=== PATIENT | male | born 1995 | race Caucasian/White ===

== ENCOUNTER 2022-07-01 14:45 | Observation (INO) ==
[2022-07-01 16:16] LABS: Basophils # (auto) 0.06 K/uL (0-0.2); Basophils % (auto) 0.6 %; Eosinophils # (auto) 0.11 K/uL (0-0.50); Eosinophils % (auto) 1.1 %; Hematocrit (blood only) 47.2 % (40.1-51.0); Hemoglobin 17.1 g/dl (14.0-18.0); Immature Granulocytes # (auto) 0.02 K/uL (0.00-0.02); Immature Granulocytes % (auto) 0.2 %; Lymphocytes # (auto) 3.65 K/uL (1.2-3.4); Lymphocytes % (auto) 37.9 %; Mean Corpuscular Hemoglobin 31.5 pg (25.0-34.0); Mean Corpuscular Hgb Conc 36.2 g/dL (32.0-36.0); Mean Corpuscular Volume 87.1 fL (80.0-100.0); Mean Platelet Volume 10.6 fL (9.4-12.4); Monocytes # (auto) 0.88 K/uL (0.24-0.82); Monocytes % (auto) 9.1 %; Neutrophils # (auto) 4.91 K/uL (1.4-6.5); Neutrophils % (auto) 51.1 %; Platelet Count 287 K/uL (130-400); RDW Coefficient of Variation 12.3 % (11.5-14.5); RDW Standard Deviation 38.9 fL (36.4-46.3); Red Blood Count 5.42 M/uL (4.63-6.08); White Blood Count 9.63 K/ul (4.8-10.8)
[2022-07-01] MEDS ORDERED: SODIUM CHLORIDE 0.9% 1000ML 2,000 ML IV ONE (16:38)
[2022-07-01 16:41] LABS: Albumin Globulin Ratio 1.7 (0.9-2); Albumin Level 4.8 gm/dl (3.4-5.0); BUN Creatinine Ratio 12.8 (10-20); Bilirubin,Total 0.9 mg/dl (0.2-1.0); Calcium 9.4 mg/dl (8.5-10.1); Creatinine Clr Calc Pharmacy 129.1 ml/min; Est GFR (African American) 97.8 ml/min; Est GFR (Non-African American) 84.3 ml/min; Globulin 2.8 gm/dl (2.5-4.0); Potassium 3.3 mmol/L (3.5-5.1); Total Protein 7.6 gm/dl (6.0-8.3)
--- NOTE | 2022-07-01 16:44 | Emergency Department Note ---
History of Present Illness General Chief complaint: Tachycardia Stated complaint: TACHYCARDIA Time Seen by Provider: 07/01/22 16:13 History of Present Illness This is a 26-year-old male with no significant past medical history accompanied by his and mother who presents via EMS for a fast heart rate that he noticed today while at work. This was accompanied by some mild dizziness. Patient states he was sitting in a monthly meeting when he began thinking about several considerations to interject into the meeting which often causes his heart rate to slightly increase but then he noticed his heart rate continuing to increase, looked at his watch and it showed elevated heart rate in the 140s. He decided to step out to get some fresh air but his heart rate would not come down. He decided to lay down and a coworker who used to be a nurse had him blow through a straw but this was not very therapeutic. He called EMS. They also had him perform some vagal maneuvers and he stated that this slightly improved his symptoms for a brief period of time but then his heart rate continued to increase again. Since being in the emergency department, he can feel his heart going up and down but has never dropped below 100. He has never experienced any chest pain, does not have any shortness of breath though at one point during these events at his office he felt like it was hard to catch a full breath. S tates that he felt a little nauseous when his heart rate was very high but has not had any vomiting or diaphoresis. The highest his heart rate showed on his smart watch was 180. He only other symptoms he can describe recently is having a bit of a sore throat several days ago and he can feel a "bump" in the back of his throat near his Elan's apple. This was accompanied by a mild amount of congestion. He denies any fevers or cough. Has not been exposed anyone who he knows is sick with anything. Admits to not drinking very much water today as he had a busy day at work. Does not routinely drink caffeine. No known problems with his thyroid. Denies any cardiac history. Denies any alcohol or substance use. No personal or family history of arrhythmias like hypertrophic cardiomyopathy, Hvbdt-[id number]-Qlrge, SVT, or Brugada syndrome. Denies any history of anxiety, if anything prides himself on being a calm person No leg pain or leg swelling, denies any history of PE or DVT. Home Medications Medication Instructions Recorded Confirmed Type No Known Home Medications 05/01/20 07/01/22 History Allergies Allergy/AdvReac Type Severity Reaction Status Date / Time No Known Allergies Allergy Unverified 05/01/20 23:37 Past Med/Surg History Medical History No significant past medical history Surgical History No pertinent past surgical history Social History Smoking Status: Never smoker Preferred Language: Mongolian Communication Ability: Effective Studio Owner Required: No Beliefs That Will Affect Care: None Current Living Situation: Spouse Feels Safe at Home: Yes Assistive Devices: None Review of Systems See HPI for pertinent positives & negatives. and A total of 10 systems reviewed and were otherwise negative Physical Exam Vital Signs Vital Signs - 24 hr 07/01/22 14:56 07/01/22 15:07 07/01/22 15:30 Temperature 98.8 F Temperature Source Oral Pulse Rate 127 H 120 H 125 H Pulse Rate from SpO2 Sensor Respiratory Rate 17 20 21 Respiratory Effort / Characteristics Non-Labored Spontaneous Respiratory Depth Normal Blood Pressure 189/95 H Blood Pressure Mean 126 Pulse Oximetry 98 98 97 Oxygen Delivery Method Room Air Sepsis Recent Fever Within 48 Hours No Sepsis New/Unexplained Change in Mental Status N/A Sepsis Action Taken by Nursing No Action Required 07/01/22 15:31 07/01/22 15:31 07/01/22 16:00 Temperature Temperature Source Pulse Rate 146 H Pulse Rate from SpO2 Sensor Respiratory Rate 17 Respiratory Effort / Characteristics Respiratory Depth Blood Pressure 164/94 H 146/91 H Blood Pressure Mean 117 109 Pulse Oximetry 97 Oxygen Delivery Method Sepsis Recent Fever Within 48 Hours Sepsis New/Unexplained Change in Mental Status Sepsis Action Taken by Nursing 07/01/22 16:00 07/01/22 16:30 07/01/22 16:30 Temperature Temperature Source Pulse Rate 136 H 119 H Pulse Rate from SpO2 Sensor Respiratory Rate 19 20 Respiratory Effort / Characteristics Respiratory Depth Blood Pressure 169/119 H Blood Pressure Mean 135 Pulse Oximetry 98 Oxygen Delivery Method Sepsis Recent Fever Within 48 Hours Sepsis New/Unexplained Change in Mental Status Sepsis Action Taken by Nursing 07/01/22 17:00 07/01/22 17:01 07/01/22 17:01 Temperature Temperature Source Pulse Rate 106 H 104 H Pulse Rate from SpO2 Sensor Respiratory Rate 19 15 Respiratory Effort / Characteristics Respiratory Depth Blood Pressure 134/82 Blood Pressure Mean 99 Pulse Oximetry Oxygen Delivery Method Sepsis Recent Fever Within 48 Hours Sepsis New/Unexplained Change in Mental Status Sepsis Action Taken by Nursing 07/01/22 17:30 07/01/22 17:30 07/01/22 18:00 Temperature Temperature Source Pulse Rate 103 H Pulse Rate from SpO2 Sensor Respiratory Rate 19 Respiratory Effort / Characteristics Respiratory Depth Blood Pressure 130/83 139/80 Blood Pressure Mean 98 99 Pulse Oximetry Oxygen Delivery Method Sepsis Recent Fever Within 48 Hours Sepsis New/Unexplained Change in Mental Status Sepsis Action Taken by Nursing 07/01/22 18:00 07/01/22 18:30 07/01/22 18:30 Temperature Temperature Source Pulse Rate 110 H 93 H Pulse Rate from SpO2 Sensor 106 H 96 H Respiratory Rate 14 22 Respiratory Effort / Characteristics Respiratory Depth Blood Pressure 144/83 H Blood Pressure Mean 103 Pulse Oximetry 96 92 Oxygen Delivery Method Sepsis Recent Fever Within 48 Hours Sepsis New/Unexplained Change in Mental Status Sepsis Action Taken by Nursing 07/01/22 19:24 07/01/22 19:24 07/01/22 19:00 Temperature Temperature Source Pulse Rate 96 H Pulse Rate from SpO2 Sensor Respiratory Rate Respiratory Effort / Characteristics Respiratory Depth Blood Pressure 141/86 H Blood Pressure Mean 104 Pulse Oximetry 95 Oxygen Delivery Method Room Air Room Air Sepsis Recent Fever Within 48 Hours Sepsis New/Unexplained Change in Mental Status Sepsis Action Taken by Nursing 07/01/22 19:00 07/01/22 19:30 07/01/22 19:30 Temperature Temperature Source Pulse Rate 105 H 87 Pulse Rate from SpO2 Sensor 100 H Respiratory Rate 19 16 Respiratory Effort / Characteristics Respiratory Depth Blood Pressure 126/87 Blood Pressure Mean 100 Pulse Oximetry 97 Oxygen Delivery Method Sepsis Recent Fever Within 48 Hours Sepsis New/Unexplained Change in Mental Status Sepsis Action Taken by Nursing 07/01/22 20:00 07/01/22 20:00 07/01/22 20:30 Temperature Temperature Source Pulse Rate 95 H 96 H Pulse Rate from SpO2 Sensor 93 H 102 H Respiratory Rate 20 22 Respiratory Effort / Characteristics Respiratory Depth Blood Pressure 132/74 Blood Pressure Mean 93 Pulse Oximetry 95 96 Oxygen Delivery Method Sepsis Recent Fever Within 48 Hours Sepsis New/Unexplained Change in Mental Status Sepsis Action Taken by Nursing 07/01/22 20:30 07/01/22 20:44 07/01/22 20:44 Temperature Temperature Source Pulse Rate 110 H Pulse Rate from SpO2 Sensor 112 H Respiratory Rate 17 Respiratory Effort / Characteristics Respiratory Depth Blood Pressure 154/101 H 174/101 H Blood Pressure Mean 118 125 Pulse Oximetry 97 Oxygen Delivery Method Sepsis Recent Fever Within 48 Hours Sepsis New/Unexplained Change in Mental Status Sepsis Action Taken by Nursing 07/01/22 21:00 07/01/22 21:00 07/01/22 21:30 Temperature Temperature Source Pulse Rate 114 H 103 H Pulse Rate from SpO2 Sensor 110 H 103 H Respiratory Rate 15 17 Respiratory Effort / Characteristics Respiratory Depth Blood Pressure 166/96 H Blood Pressure Mean 119 Pulse Oximetry 99 99 Oxygen Delivery Method Sepsis Recent Fever Within 48 Hours Sepsis New/Unexplained Change in Mental Status Sepsis Action Taken by Nursing 07/01/22 21:30 07/01/22 22:00 07/01/22 22:00 Temperature Temperature Source Pulse Rate 106 H Pulse Rate from SpO2 Sensor 106 H Respiratory Rate 20 Respiratory Effort / Characteristics Respiratory Depth Blood Pressure 155/92 H 180/107 H Blood Pressure Mean 113 131 Pulse Oximetry 99 Oxygen Delivery Method Sepsis Recent Fever Within 48 Hours Sepsis New/Unexplained Change in Mental Status Sepsis Action Taken by Nursing CONSTITUTIONAL: Well developed, well nourished, in no acute distress. HEAD: Normocephalic, atraumatic. EYES: conjunctivae normal, extraocular muscles intact. ENMT: External ears normal. Nose with normal external appearance, no congestion. Uvula is slightly swollen. Tonsils 2+ bilaterally, no exudates. NECK: Full active range of motion. Possible prominence in the left thyroid region though equivocal due to body habitus, nontender LYMPHATIC: No cervical adenopathy RESPIRATORY: Breathing unlabored and symmetric. Lungs clear to auscultation bilaterally. No wheeze, rales, or rhonchi. CARDIOVASCULAR: Tachycardic rate and regular rhythm. No murmurs, rubs, or gallops. Radial pulses 2+ bilaterally ABDOMEN: Normal bowel sounds. Soft, nontender, no peritonitis. No masses. MUSCULOSKELETAL: Moves all extremities at all joints without pain or difficulty. No cyanosis or edema. No tenderness in bilateral legs. Back with full range of motion. SKIN: [place], warm, dry. No diaphoresis NEUROLOGIC: Awake, alert, oriented. Gaze is conjugate. Face symmetric, speech normal. Moves head and all four extremities spontaneously. Sensation and strength grossly intact. PSYCHIATRIC: Appropriate. Normal affect Course Administered Medications Discontinued Medications Enoxaparin Sodium (Enoxaparin Inj 40 Mg/0.4 Ml Syr) 40 mg SQ QAM ALFONSO Stop: 08/01/22 08:59 Last Admin: 07/02/22 08:21 Dose: 40 mg Documented By: OL Sodium Chloride (Nss 1000ml) 2,000 mls @ 999 mls/hr IV .Q2H1M ONE Stop: 07/01/22 18:38 Last Infusion: 07/01/22 22:01 Dose: 0 mls/hr Documented By: Admin: 07/01/22 16:45 Dose: 999 mls/hr Documented By: TRAVIS Lactated Ringer's (Lr) 1,000 mls @ 50 mls/hr IV .Q20H ONE Stop: 07/02/22 17:20 Last Admin: 07/01/22 22:18 Dose: 50 mls/hr Documented By: VALERIE Magnesium Sulfate/Dextrose (Magnesium Sulfate / D5w) 1 gm in 100 mls @ 50 mls/hr IV 2330 ONE Stop: 07/02/22 01:29 Last Infusion: 07/02/22 01:34 Dose: 0 mls/hr Documented By: Admin: 07/01/22 23:34 Dose: 50 mls/hr Documented By: VALERIE Metoprolol Tartrate (Metoprolol Tartrate 25 Mg Tab) 25 mg PO NOW STA Stop: 07/01/22 22:05 Last Admin: 07/01/22 22:24 Dose: 25 mg Documented By: VALERIE Metoprolol Tartrate (Metoprolol Tartrate 25 Mg Tab) 25 mg PO BID ALFONSO Stop: 08/01/22 08:59 Last Admin: 07/02/22 08:21 Dose: 25 mg Documented By: OL Potassium Chloride (Potassium Chloride Crtab 20 Meq Tabcr) 40 meq PO NOW STA Stop: 07/01/22 21:20 Last Admin: 07/01/22 22:18 Dose: 40 meq Documented By: VALERIE Potassium Chloride (Potassium Chloride Crtab 20 Meq Tabcr) 40 meq PO ONE ONE Stop: 07/01/22 23:31 Last Admin: 07/01/22 23:34 Dose: Not Given Documented By: VALERIE Medical Decision Making Differential Diagnosis Dehydration, arrhythmia, electrolyte imbalance, thyroid dysfunction, substance use, dehydration, cardiac ischemia, pulmonary embolism, dissection, infectious process, pain response, catecholamine surge, strep pharyngitis, among other pathology Medical Records Attestation: I reviewed the patient's medical records. Laboratory Data Result diagrams: 07/02/22 06:08 07/02/22 06:08 Lab Results 07/01/22 07/01/22 07/01/22 Range/Units 14:56 14:56 14:56 WBC 9.63 (4.8-10.8) K/ul RBC 5.42 (4.63-6.08) M/uL Hgb 17.1 (14.0-18.0) g/dl Hct 47.2 (40.1-51.0) % MCV 87.1 (80.0-100.0) fL MCH 31.5 (25.0-34.0) pg MCHC 36.2 H (32.0-36.0) g/dL RDW Std Deviation 38.9 (36.4-46.3) fL RDW Coeff of Kellee 12.3 (11.5-14.5) % Plt Count 287 (130-400) K/uL MPV 10.6 (9.4-12.4) fL Immature Gran % (Auto) 0.2 % Neut % (Auto) 51.1 % Lymph % (Auto) 37.9 % [place] % (Auto) 9.1 % Eos % (Auto) 1.1 % Baso % (Auto) 0.6 % Neut # (Auto) 4.91 (1.4-6.5) K/uL Lymph # (Auto) 3.65 H (1.2-3.4) K/uL [place] # (Auto) 0.88 H (0.24-0.82) K/uL Eos # (Auto) 0.11 (0-0.50) K/uL Baso # (Auto) 0.06 (0-0.2) K/uL Immature Gran # (Auto) 0.02 (0.00-0.02) K/uL D-Dimer (0-500) ug/L FEU Sodium 138 (136-145) mmol/L Potassium 3.3 L (3.5-5.1) mmol/L Chloride 103 (98-107) mmol/L Carbon Dioxide 22 (21-32) mmol/L Anion Gap 13 H (3-11) BUN 15 (6-23) mg/dl Creatinine 1.17 (0.6-1.4) mg/dl Est Cr Clr Drug Dosing 129.1 ml/min Est GFR ( Amer) 97.8 ml/min Est GFR (Non-Af Amer) 84.3 ml/min BUN/Creatinine Ratio 12.8 (10-20) Glucose 128 H (70-99(Fasting)) mg/dl Estimat Average Glucose mg/dl Hemoglobin A1c (4.5-5.6) % Calcium 9.4 (8.5-10.1) mg/dl Magnesium (1.7-2.4) mg/dl Total Bilirubin 0.9 (0.2-1.0) mg/dl AST 44 H (13-39) U/L ALT 102 H (7-52) U/L Alkaline Phosphatase 85 (34-104) U/L Troponin I High Sens 4.5 (0-20) pg/ml Total Protein 7.6 (6.0-8.3) gm/dl Albumin 4.8 (3.4-5.0) gm/dl Globulin 2.8 (2.5-4.0) gm/dl Albumin/Globulin Ratio 1.7 (0.9-2) Lipase (11-82) U/L TSH (0.300-4.500) uIu/ml Urine Color Urine Appearance (Clear) Urine pH (4.5-7.5) Ur Specific [place] (1.000-1.030) Urine Protein (Negative) Urine Glucose (UA) (Negative) Urine Ketones (Negative) Urine Blood (Negative) Urine Nitrite (Negative) Urine Bilirubin (Negative) Urine Urobilinogen (Negative) Ur Leukocyte Esterase (Negative) Urine WBC (Auto) (0-5) /hpf Urine RBC (Auto) (0-4) /hpf U Hyaline Cast (Auto) (0-5) /lpf U Epithel Cells (Auto) (0-5) /lpf Urine Bacteria (Auto) (Negative) SARS-CoV-2 (PCR) (Negative) Influenza Type A (PCR) (Neg) Influenza Type B (PCR) (Neg) RSV (RT-PCR) (Neg) Group A Strep (PCR) (NotDetected) 12/12/1607/01/22 07/01/22 Range/Units 14:56 14:56 14:56 WBC (4.8-10.8) K/ul RBC (4.63-6.08) M/uL Hgb (14.0-18.0) g/dl Hct (40.1-51.0) % MCV (80.0-100.0) fL MCH (25.0-34.0) pg MCHC (32.0-36.0) g/dL RDW Std Deviation (36.4-46.3) fL RDW Coeff of Kellee (11.5-14.5) % Plt Count (130-400) K/uL MPV (9.4-12.4) fL Immature Gran % (Auto) % Neut % (Auto) % Lymph % (Auto) % [place] % (Auto) % Eos % (Auto) % Baso % (Auto) % Neut # (Auto) (1.4-6.5) K/uL Lymph # (Auto) (1.2-3.4) K/uL [place] # (Auto) (0.24-0.82) K/uL Eos # (Auto) (0-0.50) K/uL Baso # (Auto) (0-0.2) K/uL Immature Gran # (Auto) (0.00-0.02) K/uL D-Dimer < 190 (0-500) ug/L FEU Sodium (136-145) mmol/L Potassium (3.5-5.1) mmol/L Chloride (98-107) mmol/L Carbon Dioxide (21-32) mmol/L Anion Gap (3-11) BUN (6-23) mg/dl Creatinine (0.6-1.4) mg/dl Est Cr Clr Drug Dosing ml/min Est GFR ( Amer) ml/min Est GFR (Non-Af Amer) ml/min BUN/Creatinine Ratio (10-20) Glucose (70-99(Fasting)) mg/dl Estimat Average Glucose 103 mg/dl Hemoglobin A1c 5.2 (4.5-5.6) % Calcium (8.5-10.1) mg/dl Magnesium (1.7-2.4) mg/dl Total Bilirubin (0.2-1.0) mg/dl AST (13-39) U/L ALT (7-52) U/L Alkaline Phosphatase (34-104) U/L Troponin I High Sens (0-20) pg/ml Total Protein (6.0-8.3) gm/dl Albumin (3.4-5.0) gm/dl Globulin (2.5-4.0) gm/dl Albumin/Globulin Ratio (0.9-2) Lipase (11-82) U/L TSH 3.049 (0.300-4.500) uIu/ml Urine Color Urine Appearance (Clear) Urine pH (4.5-7.5) Ur Specific [place] (1.000-1.030) Urine Protein (Negative) Urine Glucose (UA) (Negative) Urine Ketones (Negative) Urine Blood (Negative) Urine Nitrite (Negative) Urine Bilirubin (Negative) Urine Urobilinogen (Negative) Ur Leukocyte Esterase (Negative) Urine WBC (Auto) (0-5) /hpf Urine RBC (Auto) (0-4) /hpf U Hyaline Cast (Auto) (0-5) /lpf U Epithel Cells (Auto) (0-5) /lpf Urine Bacteria (Auto) (Negative) SARS-CoV-2 (PCR) (Negative) Influenza Type A (PCR) (Neg) Influenza Type B (PCR) (Neg) RSV (RT-PCR) (Neg) Group A Strep (PCR) (NotDetected) 07/01/22 07/01/22 07/01/22 Range/Units 14:56 16:51 16:51 WBC (4.8-10.8) K/ul RBC (4.63-6.08) M/uL Hgb (14.0-18.0) g/dl Hct (40.1-51.0) % MCV (80.0-100.0) fL MCH (25.0-34.0) pg MCHC (32.0-36.0) g/dL RDW Std Deviation (36.4-46.3) fL RDW Coeff of Kellee (11.5-14.5) % Plt Count (130-400) K/uL MPV (9.4-12.4) fL Immature Gran % (Auto) % Neut % (Auto) % Lymph % (Auto) % [place] % (Auto) % Eos % (Auto) % Baso % (Auto) % Neut # (Auto) (1.4-6.5) K/uL Lymph # (Auto) (1.2-3.4) K/uL [place] # (Auto) (0.24-0.82) K/uL Eos # (Auto) (0-0.50) K/uL Baso # (Auto) (0-0.2) K/uL Immature Gran # (Auto) (0.00-0.02) K/uL D-Dimer (0-500) ug/L FEU Sodium (136-145) mmol/L Potassium (3.5-5.1) mmol/L Chloride (98-107) mmol/L Carbon Dioxide (21-32) mmol/L Anion Gap (3-11) BUN (6-23) mg/dl Creatinine (0.6-1.4) mg/dl Est Cr Clr Drug Dosing ml/min Est GFR ( Amer) ml/min Est GFR (Non-Af Amer) ml/min BUN/Creatinine Ratio (10-20) Glucose (70-99(Fasting)) mg/dl Estimat Average Glucose mg/dl Hemoglobin A1c (4.5-5.6) % Calcium (8.5-10.1) mg/dl Magnesium 1.9 (1.7-2.4) mg/dl Total Bilirubin (0.2-1.0) mg/dl AST (13-39) U/L ALT (7-52) U/L Alkaline Phosphatase (34-104) U/L Troponin I High Sens (0-20) pg/ml Total Protein (6.0-8.3) gm/dl Albumin (3.4-5.0) gm/dl Globulin (2.5-4.0) gm/dl Albumin/Globulin Ratio (0.9-2) Lipase (11-82) U/L TSH (0.300-4.500) uIu/ml Urine Color Urine Appearance (Clear) Urine pH (4.5-7.5) Ur Specific [place] (1.000-1.030) Urine Protein (Negative) Urine Glucose (UA) (Negative) Urine Ketones (Negative) Urine Blood (Negative) Urine Nitrite (Negative) Urine Bilirubin (Negative) Urine Urobilinogen (Negative) Ur Leukocyte Esterase (Negative) Urine WBC (Auto) (0-5) /hpf Urine RBC (Auto) (0-4) /hpf U Hyaline Cast (Auto) (0-5) /lpf U Epithel Cells (Auto) (0-5) /lpf Urine Bacteria (Auto) (Negative) SARS-CoV-2 (PCR) NEGATIVE (Negative) Influenza Type A (PCR) Negative (Neg) Influenza Type B (PCR) Negative (Neg) RSV (RT-PCR) Negative (Neg) Group A Strep (PCR) NOT DETECTED (NotDetected) 07/01/22 07/01/22 07/01/22 Range/Units 17:11 19:21 19:21 WBC (4.8-10.8) K/ul RBC (4.63-6.08) M/uL Hgb (14.0-18.0) g/dl Hct (40.1-51.0) % MCV (80.0-100.0) fL MCH (25.0-34.0) pg MCHC (32.0-36.0) g/dL RDW Std Deviation (36.4-46.3) fL RDW Coeff of Kellee (11.5-14.5) % Plt Count (130-400) K/uL MPV (9.4-12.4) fL Immature Gran % (Auto) % Neut % (Auto) % Lymph % (Auto) % [place] % (Auto) % Eos % (Auto) % Baso % (Auto) % Neut # (Auto) (1.4-6.5) K/uL Lymph # (Auto) (1.2-3.4) K/uL [place] # (Auto) (0.24-0.82) K/uL Eos # (Auto) (0-0.50) K/uL Baso # (Auto) (0-0.2) K/uL Immature Gran # (Auto) (0.00-0.02) K/uL D-Dimer (0-500) ug/L FEU Sodium (136-145) mmol/L Potassium (3.5-5.1) mmol/L Chloride (98-107) mmol/L Carbon Dioxide (21-32) mmol/L Anion Gap (3-11) BUN (6-23) mg/dl Creatinine (0.6-1.4) mg/dl Est Cr Clr Drug Dosing ml/min Est GFR ( Amer) ml/min Est GFR (Non-Af Amer) ml/min BUN/Creatinine Ratio (10-20) Glucose (70-99(Fasting)) mg/dl Estimat Average Glucose mg/dl Hemoglobin A1c (4.5-5.6) % Calcium (8.5-10.1) mg/dl Magnesium (1.7-2.4) mg/dl Total Bilirubin (0.2-1.0) mg/dl AST (13-39) U/L ALT (7-52) U/L Alkaline Phosphatase (34-104) U/L Troponin I High Sens 4.6 (0-20) pg/ml Total Protein (6.0-8.3) gm/dl Albumin (3.4-5.0) gm/dl Globulin (2.5-4.0) gm/dl Albumin/Globulin Ratio (0.9-2) Lipase 6 L (11-82) U/L TSH (0.300-4.500) uIu/ml Urine Color Yellow Urine Appearance Clear (Clear) Urine pH 7.5 (4.5-7.5) Ur Specific [place] 1.021 (1.000-1.030) Urine Protein Negative (Negative) Urine Glucose (UA) Negative (Negative) Urine Ketones Negative (Negative) Urine Blood 1+ H (Negative) Urine Nitrite Negative (Negative) Urine Bilirubin Negative (Negative) Urine Urobilinogen Negative (Negative) Ur Leukocyte Esterase Negative (Negative) Urine WBC (Auto) 1-5 (0-5) /hpf Urine RBC (Auto) 10-30 H (0-4) /hpf U Hyaline Cast (Auto) 5-10 H (0-5) /lpf U Epithel Cells (Auto) 5-10 H (0-5) /lpf Urine Bacteria (Auto) Negative (Negative) SARS-CoV-2 (PCR) (Negative) Influenza Type A (PCR) (Neg) Influenza Type B (PCR) (Neg) RSV (RT-PCR) (Neg) Group A Strep (PCR) (NotDetected) Imaging Data Attestation: I personally reviewed and interpreted this imaging study as follows: (I agree with the radiologist's interpretation) Radiologist's Impression: Chest X-Ray 07/01/22 16:38 XR chest 1V portable HISTORY: 26 years-old Male tachycardia, dizziness acute tachycardia with shortness of breath and chest pain COMPARISON: None TECHNIQUE: Portable AP view of the chest FINDINGS: Cardiomediastinal and hilar silhouettes are within normal limits. No pneumothorax, pleural effusion, airspace consolidation or overt pulmonary edema. Bones of the chest appear grossly intact. IMPRESSION: No acute process. ACT 112: Negative or not required by law. The above report was generated using voice recognition software. It may contain grammatical, syntax or spelling errors. Electronically signed by: Sigifredo Culver M.D. 07/01/2022 5:12 PM ECG Data Attestation: I personally reviewed and interpreted this ECG as follows: (Sinus tachycardia with a rate of 122. Intervals within normal limits. Normal axis. Nonspecific T wave abnormality in lead III. No acute ST elevation) MDM Narrative 26-year-old male presents with tachycardia that he felt and noticed on his watch that occurred while sitting in a meeting today at work. Accompanied by a mild amount of dizziness and feeling like it was difficult to catch a full breath though denies that now, denies any chest pain during these events today. Did not have much relief with vagal maneuvers. An order was placed for continuous cardiac monitoring. When I evaluated the p atient he was in sinus tachycardic in the 105-120 range. He is hypertensive. ECG shows sinus tachycardia. Patient also endorses a little bit of a sore throat and some congestion several days ago. His uvula is slightly swollen, possible node or prominence in the thyroid region but this is limited by body habitus. Patient has had mono, doubt this. 2 L IV fluids were initially administered. Patient remained hypertensive though this did improve somewhat with fluids and time. He had 2 negative troponins. D-dimer is negative. Potassium slightly low at 3.3. Anion gap slightly elevated at 13. Glucose slightly elevated 128. AST and ALT are mildly elevated, he has had slightly elevated ALT in the past. TSH is normal. Urinalysis shows blood, unclear if this etiology. Negative for COVID, strep, influenza, RSV. Chest x-ray is negative. Patient's heart rate trended down and did get below 100 at one point, though he spontaneously climbed back into the 140's while resting and remained in the 120- 130 range with multiple PACs for quite some time, and when I reevaluated him he stated he could feel his heart racing. His blood pressure was 154/101. Unable to discharge patient in this state. Case was discussed multiple times with ED attending Dr. Burton throughout patient's course. Case was discussed with Dr. Ybarra (hospitalist, [facility]) who agrees to admit the patient for further evaluation and management Impression & Plan Sinus tachycardia, Elevated blood pressure reading Discharge Plan Visit Data Chief Complaint: Tachycardia Stated Complaint: TACHYCARDIA ED Provider: Semaj Burton ED Midlevel Provider: Elan Ken Discharge Problem: Sinus tachycardia, Elevated blood pressure reading Patient Disposition: Admitted As Inpatient Condition: Fair Discharge Instructions Interventions: ED Discharge Assessment Last Done: 07/02/22 00:51
--- NOTE | 2022-07-01 17:13 | XRay Report ---
XR chest 1V portable HISTORY: 26 years-old Male tachycardia, dizziness acute tachycardia with shortness of breath and liliya st pain COMPARISON: None TECHNIQUE: Portable AP view of the chest FINDINGS: Cardiomediastinal and hilar silhouettes are within normal limits. No pneumothorax, pleural effusion, airspace consolidation or overt pulmonary edema. Bones of the chest appear grossly intact. IMPRESSION: No acute process. ACT 112: Negative or not required by law. The above report was generated using voice recognition software. It may contain grammatical, syntax o r spelling errors. Electronically signed by: Sigifredo Culver M.D. 07/01/2022 5:12 PM
--- NOTE | 2022-07-01 17:14 | Electrocardiogram Report ---
Test Reason : Blood Pressure : / mmHG Vent. Rate : 122 BPM Atrial Rate : 122 BPM P-R Int : 164 ms QRS Dur : 090 ms QT Int : 290 ms P-R-T Axes : 056 062 029 degrees QTc Int : 413 ms Sinus tachycardia with Premature supraventricular complexes Possible Left atrial enlargement Nonspecific T wave abnormality Abnormal ECG No previous ECGs available Confirmed by Farrukh Peguero ([id number]) on 07/01/2022 5:13:34 PM Referred By: Confirmed By:Farrukh Peguero
[2022-07-01 17:23] LABS: D Dimer < 190 ug/L FEU (0-500)
[2022-07-01 17:27] LABS: Appearance Urine Clear (Clear); Bacteria Urine Automated Negative (Negative); Bilirubin Urine Negative (Negative); Blood Urine 1+ (Negative); Color Urine Yellow; Glucose Urine UA Negative (Negative); Ketones Urine Negative (Negative); Leukocyte Esterase Urine Negative (Negative); Nitrite Urine Negative (Negative); Protein Urine Negative (Negative); Specific Gravity Urine 1.021 (1.000-1.030); Urobilinogen Urine Negative (Negative); pH Urine 7.5 (4.5-7.5)
[2022-07-01 18:26] LABS: Influenza A virus by PCR Negative (Neg); Influenza B virus by PCR Negative (Neg); RSV by PCR Negative (Neg); SARS CoV2 RNA(COVID-19) Ceph NEGATIVE (Negative)
[2022-07-01] MEDS ORDERED: POTASSIUM CHLORIDE CRTAB 20 MEQ TABCR PO STA (21:19)
[2022-07-01] MEDS ORDERED: LACTATED RINGER'S 1,000 ML IV ONE (21:21)
[2022-07-01] MEDS ORDERED: METOPROLOL TARTRATE 25 MG TAB PO STA (22:04)
--- NOTE | 2022-07-01 22:04 | History & Physical Report ---
Date of Service July 01, 2022 Assessment & Plan (1) Palpitations: Plan: Sinus tachycardia at the ER Rule out SVT given documented heart rate of 170s on patient's Fitbit watch outpatient Hypokalemia contributory Hypertensive urgency Possible untreated hypertension as per patient LAE noted on EKG asymptomatic transaminitis Hyperglycemia rule out DM Possible KENNA OBS PCU Initiate beta-sharad for BP and heart rate control Replace electrolytes TTE, Cardiology consult Re: Palpitations Follow LFTs, liver ultrasound if with progression Outpatient sleep study Check hemoglobin A1c DVT prophylaxis. Lovenox subcu Full code Patient requesting update providers. Ms. Vidya Srinivasan, contact #[phone]. Text document was generated using [employer] voice recognition software. It may contain grammatical or spelling errors. Kindly contact undersigned for clarification of any documentation item in question. History of Present Illness Chief Complaint: Palpitations Primary Care Provider: Self, Referred History obtained from patient, family, and records. Medical history significant for possible hypertension as per patient. Patient was at an office meeting today when he experience palpitations. No chest pain, no shortness of breath. Some excitement during meeting. No unusual caffeine intake. No recent EtOH or decongestant intake. No headache, no abdominal pain symptoms. No prior episodes. Throat discomfort a few days ago without cough symptoms. 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 Heart rate on his watch as high as 170. A coworker with nursing background asked him to perform vagal maneuvers which s lightly improved symptoms. Patient brought to the ER by EMS. Highest SBP of 180s at the ER. 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 Allergies Allergy/AdvReac Type Severity Reaction Status Date / Time No Known Allergies Allergy Unverified 05/01/20 23:37 Home Medications Medication Instructions Recorded Confirmed Type No Known Home Medications 05/01/20 07/01/22 History Past Med/Surg History Medical History No significant past medical history Surgical History No pertinent past surgical history Social History Smoking Status: Never smoker Preferred Language: Spanish Communication Ability: Effective Procedure Rn Required: No Beliefs That Will Affect Care: None Current Living Situation: Spouse Feels Safe at Home: Yes Assistive Devices: None Review of Systems Review of Systems: As per HPI, snoring and possible sleep apnea as per patient/, all other systems reviewed and negative Physical Exam Physical Exam: GENERAL: Comfortable, pleasant, obese, no respiratory distress SKIN: Normal color, warm HEENT: [place] palpebral conjunctivae, no ptosis, moist buccal mucosa NECK : Supple, short neck, no tenderness CHEST : CTA, no tenderness HEART : Tachycardic, no obvious murmurs ABDOMEN: Some distention, nontender EXTREMITIES : No LE swelling/tenderness, no other conspicuous deformities noted NEUROLOGIC : Coherent, no facial asymmetry, no other gross focality Results & Data Results & Data ([facility]) Vital Signs (Past 12 Hours) Vital Signs Temp Pulse Resp BP Pulse Ox O2 Del Method 07/01/22 19:00 105 H 19 97 07/01/22 19:00 141/86 H 07/01/22 19:24 96 H 95 Room Air 07/01/22 19:24 Room Air 07/01/22 18:30 93 H 22 92 07/01/22 18:30 144/83 H 07/01/22 18:00 110 H 14 96 07/01/22 18:00 139/80 07/01/22 17:30 103 H 19 07/01/22 17:30 130/83 07/01/22 17:01 134/82 07/01/22 17:01 104 H 15 07/01/22 17:00 106 H 19 07/01/22 16:30 119 H 20 07/01/22 16:30 169/119 H 07/01/22 16:00 136 H 19 98 07/01/22 16:00 146/91 H 07/01/22 15:31 164/94 H 07/01/22 15:31 146 H 17 97 07/01/22 15:30 125 H 21 97 07/01/22 15:07 120 H 20 98 07/01/22 14:56 37.1 C 127 H 17 189/95 H 98 Room Air Laboratory Results Laboratory Results WBC 9.63 K/ul (4.8-10.8) 07/01/22 14:56 RBC 5.42 M/uL (4.63-6.08) 07/01/22 14:56 Hgb 17.1 g/dl (14.0-18.0) 07/01/22 14:56 Hct 47.2 % (40.1-51.0) 07/01/22 14:56 MCV 87.1 fL (80.0-100.0) 07/01/22 14:56 MCH 31.5 pg (25.0-34.0) 07/01/22 14:56 MCHC 36.2 g/dL (32.0-36.0) H 07/01/22 14:56 RDW Std Deviation 38.9 fL (36.4-46.3) 07/01/22 14:56 RDW Coeff of Kellee 12.3 % (11.5-14.5) 07/01/22 14:56 Plt Count 287 K/uL (130-400) 07/01/22 14:56 MPV 10.6 fL (9.4-12.4) 07/01/22 14:56 Immature Gran % (Auto) 0.2 % 07/01/22 14:56 Neut % (Auto) 51.1 % 07/01/22 14:56 Lymph % (Auto) 37.9 % 07/01/22 14:56 [place] % (Auto) 9.1 % 07/01/22 14:56 Eos % (Auto) 1.1 % 07/01/22 14:56 Baso % (Auto) 0.6 % 07/01/22 14:56 Neut # (Auto) 4.91 K/uL (1.4-6.5) 07/01/22 14:56 Lymph # (Auto) 3.65 K/uL (1.2-3.4) H 07/01/22 14:56 [place] # (Auto) 0.88 K/uL (0.24-0.82) H 07/01/22 14:56 Eos # (Auto) 0.11 K/uL (0-0.50) 07/01/22 14:56 Baso # (Auto) 0.06 K/uL (0-0.2) 07/01/22 14:56 Immature Gran # (Auto) 0.02 K/uL (0.00-0.02) 07/01/22 14:56 D-Dimer < 190 ug/L FEU (0-500) 07/01/22 14:56 Sodium 138 mmol/L (136-145) 07/01/22 14:56 Potassium 3.3 mmol/L (3.5-5.1) L 07/01/22 14:56 Chloride 103 mmol/L (98-107) 07/01/22 14:56 Carbon Dioxide 22 mmol/L (21-32) 07/01/22 14:56 Anion Gap 13 (3-11) H 07/01/22 14:56 BUN 15 mg/dl (6-23) 07/01/22 14:56 Creatinine 1.17 mg/dl (0.6-1.4) 07/01/22 14:56 Est Cr Clr Drug Dosing 129.1 ml/min 07/01/22 14:56 Est GFR ( Amer) 97.8 ml/min 07/01/22 14:56 Est GFR (Non-Af Amer) 84.3 ml/min 07/01/22 14:56 BUN/Creatinine Ratio 12.8 (10-20) 07/01/22 14:56 Glucose 128 mg/dl (70-99(Fasting)) H 07/01/22 14:56 Calcium 9.4 mg/dl (8.5-10.1) 07/01/22 14:56 Total Bilirubin 0.9 mg/dl (0.2-1.0) 07/01/22 14:56 AST 44 U/L (13-39) H 07/01/22 14:56 ALT 102 U/L (7-52) H 07/01/22 14:56 Alkaline Phosphatase 85 U/L (34-104) 07/01/22 14:56 Troponin I High Sens 4.6 pg/ml (0-20) 07/01/22 19:21 Total Protein 7.6 gm/dl (6.0-8.3) 07/01/22 14:56 Albumin 4.8 gm/dl (3.4-5.0) 07/01/22 14:56 Globulin 2.8 gm/dl (2.5-4.0) 07/01/22 14:56 Albumin/Globulin Ratio 1.7 (0.9-2) 07/01/22 14:56 TSH 3.049 uIu/ml (0.300-4.500) 07/01/22 14:56 Urine Color Yellow 07/01/22 17:11 Urine Appearance Clear (Clear) 07/01/22 17:11 Urine pH 7.5 (4.5-7.5) 07/01/22 17:11 Ur Specific [place] 1.021 (1.000-1.030) 07/01/22 17:11 Urine Protein Negative (Negative) 07/01/22 17:11 Urine Glucose (UA) Negative (Negative) 07/01/22 17:11 Urine Ketones Negative (Negative) 07/01/22 17:11 Urine Blood 1+ (Negative) H 07/01/22 17:11 Urine Nitrite Negative (Negative) 07/01/22 17:11 Urine Bilirubin Negative (Negative) 07/01/22 17:11 Urine Urobilinogen Negative (Negative) 07/01/22 17:11 Ur Leukocyte Esterase Negative (Negative) 07/01/22 17:11 Urine WBC (Auto) 1-5 /hpf (0-5) 07/01/22 17:11 Urine RBC (Auto) 10-30 /hpf (0-4) H 07/01/22 17:11 U Hyaline Cast (Auto) 5-10 /lpf (0-5) H 07/01/22 17:11 U Epithel Cells (Auto) 5-10 /lpf (0-5) H 07/01/22 17:11 Urine Bacteria (Auto) Negative (Negative) 07/01/22 17:11 SARS-CoV-2 (PCR) NEGATIVE (Negative) 07/01/22 16:51 Influenza Type A (PCR) Negative (Neg) 07/01/22 16:51 Influenza Type B (PCR) Negative (Neg) 07/01/22 16:51 RSV (RT-PCR) Negative (Neg) 07/01/22 16:51 Group A Strep (PCR) NOT DETECTED (NotDetected) 07/01/22 16:51 Impressions Chest X-Ray 07/01/22 16:38 XR chest 1V portable HISTORY: 26 years-old Male tachycardia, dizziness acute tachycardia with shortness of breath and chest pain COMPARISON: None TECHNIQUE: Portable AP view of the chest FINDINGS: Cardiomediastinal and hilar silhouettes are within normal limits. No pneumothorax, pleural effusion, airspace consolidation or overt pulmonary edema. Bones of the chest appear grossly intact. IMPRESSION: No acute process. ACT 112: Negative or not required by law. The above report was generated using voice recognition software. It may contain grammatical, syntax or spelling errors. Electronically signed by: Sigifredo Culver M.D. 07/01/2022 5:12 PM Diagnostic Findings EKG as per my interpretation : Rate 120, NSR, normal axis, LAE, no ischemia
[2022-07-01] MEDS ORDERED: POTASSIUM CHLORIDE CRTAB 20 MEQ TABCR PO ONE (23:30)
[2022-07-01] MEDS ORDERED: MAGNESIUM SULFATE / D5W 1 GM/100 ML BAG IV ONE (23:30)
[2022-07-02] MEDS ORDERED: traMADol HCL 50 MG TABLET PO PRN (00:52)
[2022-07-02] MEDS ORDERED: ACETAMINOPHEN 500 MG TAB PO PRN (00:52)
[2022-07-02] MEDS ORDERED: PROMETHAZINE HCL 12.5 MG in SODIUM CHLORIDE 0.9% 50 ML IV PRN (00:52)
[2022-07-02] MEDS ORDERED: LORazepam 0.5 MG TAB PO PRN (00:52)
[2022-07-02 06:20] LABS: Estimated Average Glucose 103 mg/dl; Hemoglobin A1C 5.2 % (4.5-5.6)
[2022-07-02 06:35] LABS: Basophils # (auto) 0.06 K/uL (0-0.2); Basophils % (auto) 0.7 %; Eosinophils % (auto) 1.1 %; Hematocrit (blood only) 43.9 % (40.1-51.0); Hemoglobin 15.5 g/dl (14.0-18.0); Immature Granulocytes # (auto) 0.02 K/uL (0.00-0.02); Immature Granulocytes % (auto) 0.2 %; Lymphocytes # (auto) 3.44 K/uL (1.2-3.4); Lymphocytes % (auto) 38.4 %; Mean Corpuscular Hemoglobin 31.3 pg (25.0-34.0); Mean Corpuscular Hgb Conc 35.3 g/dL (32.0-36.0); Mean Corpuscular Volume 88.7 fL (80.0-100.0); Mean Platelet Volume 10.2 fL (9.4-12.4); Monocytes # (auto) 1.01 K/uL (0.24-0.82); Monocytes % (auto) 11.3 %; Neutrophils # (auto) 4.33 K/uL (1.4-6.5); Neutrophils % (auto) 48.3 %; Platelet Count 240 K/uL (130-400); RDW Coefficient of Variation 12.5 % (11.5-14.5); RDW Standard Deviation 40.4 fL (36.4-46.3); Red Blood Count 4.95 M/uL (4.63-6.08); White Blood Count 8.96 K/ul (4.8-10.8)
[2022-07-02 07:18] LABS: Albumin Level 4.3 gm/dl (3.4-5.0); BUN Creatinine Ratio 11.9 (10-20); Bilirubin Direct 0.2 mg/dl (0-0.2); Calcium 9.1 mg/dl (8.5-10.1); Creatinine Clr Calc Pharmacy 149.6 ml/min; Est GFR (African American) 116.8 ml/min; Est GFR (Non-African American) 100.8 ml/min; Potassium 4.3 mmol/L (3.5-5.1); Total Protein 6.7 gm/dl (6.0-8.3)
[2022-07-02] MEDS ORDERED: ENOXAPARIN INJ 40 MG/0.4 ML SYR SQ SCH (09:00)
[2022-07-02] MEDS ORDERED: METOPROLOL TARTRATE 25 MG TAB PO SCH (09:00)
--- NOTE | 2022-07-02 09:52 | Cardiology Consultation ---
Date of Consultation July 02, 2022 Assessment & Plan (1) Atrial tachycardia, paroxysmal: Plan 26 yo healthy male presented with complaints of palpitations associated with dizziness. 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 Alejandre Attending Physician: Farhad Alejandre MD History of Present Illness It was my pleasure to see Mr. Srinivasan in cardiac consultation today July 02, 2022. He is a very pleasant 26-year-old male who presented to [facility] on the with complaints of palpitations. The patient states he was sitting in a work meeting when he suddenly felt his heart start to race. This was associated with an overall flushing sensation and some lightheadedness. He went outside to get some air but was seen by the staff nurse and told that he did not look well. His Fitbit stated that his heart rate was up into the 170s. Valsalva maneuvers were attempted without any significant improvement. He states this lasted for approximately 20 to 30 minutes. He then presented to the emergency room for further evaluation and had a recurrent episode of his palpitations while on monitor at 1999. This lasted only a few minutes and broke on its own. Currently he is without complaint at rest. Denies any recent sicknesses or medication changes. Allergies Allergy/AdvReac Type Severity Reaction Status Date / Time No Known Allergies Allergy Unverified 05/01/20 23:37 Home Medications Medication Instructions Recorded Confirmed Type No Known Home Medications 05/01/20 07/01/22 History Patient History Medical History No significant past medical history Surgical History No pertinent past surgical history Social History Smoking Status: Never smoker Preferred Language: Indonesian Communication Ability: Effective Medical Physicist Required: No Beliefs That Will Affect Care: None Current Living Situation: Spouse Feels Safe at Home: Yes Assistive Devices: None Review of Systems Review of Systems: All systems reviewed & are unremarkable except as noted in HPI & below Physical Exam Physical Exam: Physical Exam: General: Awake, alert and oriented x 3. No acute distress. HEENT: Normocephalic, atraumatic. Pupils equal, round and reactive to light and accommodation. Extraocular muscles are intact. Anicteric sclera. Moist mucous membranes. Neck: No JVD. No bruit. Cardiovascular: Regular. No S-4. Normal S-1 and S-2. No S-3. No murmurs, rubs or gallops. Pulmonary: Clear to auscultation bilaterally. No rales, rhonchi, or wheezing. Abdomen: Bowel sounds x 4, soft. No rebound, guarding or tenderness. No organomegaly. Extremities: No clubbing, cyanosis or edema. +2 pedal pulses bilaterally. Skin: Warm and dry. Results & Data ([facility]) Vital Signs (Past 12 Hours) Vital Signs Temp Pulse Pulse Resp BP BP Pulse Ox 07/02/22 08:39 36.8 C 87 18 132/84 98 07/02/22 08:02 75 18 132/84 99 07/02/22 05:00 65 12 94 07/02/22 04:30 139/81 07/02/22 04:30 73 16 95 07/02/22 04:00 69 7 L 93 07/02/22 04:00 152/80 H 07/02/22 03:30 194/104 H 07/02/22 03:30 65 10 L 96 07/02/22 03:04 79 17 96 07/02/22 02:30 76 16 91 07/02/22 02:30 118/62 07/02/22 02:00 66 12 94 07/02/22 02:00 126/76 07/02/22 01:30 76 17 92 07/02/22 01:30 129/78 07/02/22 01:00 78 19 07/02/22 01:00 129/87 07/02/22 00:30 80 22 96 07/02/22 00:30 137/89 07/02/22 00:00 79 10 L 94 07/02/22 00:00 139/84 07/01/22 23:30 80 14 95 07/01/22 23:30 138/87 07/01/22 23:00 100 H 13 97 07/01/22 23:00 147/88 H 07/01/22 22:30 150/89 H 07/01/22 22:30 102 H 18 96 07/01/22 22:00 106 H 20 99 07/01/22 22:00 180/107 H O2 Del Method 07/02/22 08:39 Room Air 07/02/22 08:02 Room Air 07/02/22 05:00 07/02/22 04:30 07/02/22 04:30 07/02/22 04:00 07/02/22 04:00 07/02/22 03:30 07/02/22 03:30 07/02/22 03:04 07/02/22 02:30 07/02/22 02:30 07/02/22 02:00 07/02/22 02:00 07/02/22 01:30 07/02/22 01:30 07/02/22 01:00 07/02/22 01:00 07/02/22 00:30 07/02/22 00:30 07/02/22 00:00 07/02/22 00:00 07/01/22 23:30 07/01/22 23:30 07/01/22 23:00 07/01/22 23:00 07/01/22 22:30 07/01/22 22:30 07/01/22 22:00 07/01/22 22:00
--- NOTE | 2022-07-02 14:52 | Discharge Summary ---
Date of Service July 02, 2022 Admission HPI Per Admitting Provider History obtained from patient, family, and records. Medical history significant for possible hypertension as per patient. Patient was at an office meeting today when he experience palpitations. No chest pain, no shortness of breath. Some excitement during meeting. No unusual caffeine intake. No recent EtOH or decongestant intake. No headache, no abdominal pain symptoms. No prior episodes. Throat discomfort a few days ago without cough symptoms. 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 Heart rate on his watch as high as 170. A coworker with nursing background asked him to perform vagal maneuvers which slightly improved symptoms. Patient brought to the ER by EMS. Highest SBP of 180s at the ER. 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 Discharge Data Allergies Allergy/AdvReac Type Severity Reaction Status Date / Time No Known Allergies Allergy Unverified 05/01/20 23:37 Consultations 07/01/22 21:00 ED Decision to Admit Stat 07/02/22 00:52 Consult Cardiology Routine Hospital Course (1) Palpitations: Sinus tachycardia at the ER Rule out SVT given documented heart rate of 170s on patient's Fitbit watch outpatient Hypokalemia contributory Hypertensive urgency Possible untreated hypertension as per patient LAE noted on EKG asymptomatic transaminitis Hyperglycemia rule out DM Possible KENNA OBS PCU Initiate beta-sharad for BP and heart rate control Replace electrolytes TTE, Cardiology consult Re: Palpitations Follow LFTs, liver ultrasound if with progression Outpatient sleep study Check hemoglobin A1c DVT prophylaxis. Lovenox subcu Full code Patient requesting update providers. Ms. Vidya Srinivasan, contact #[phone]. Text document was generated using [employer] voice recognition software. It may contain grammatical or spelling errors. Kindly contact undersigned for clarification of any documentation item in question. Discharge Plan Discharge Items Patient Disposition: Home - Self-Care Reason For Visit: PALPITATIONS Discharge Diagnosis: Atrial tachycardia, paroxysmal Palpitation Condition on Discharge: Fair Activity: Resume your previous activity Non-emergency contact: Primary Care Provider and Building Drafter Call non-emergency contact if: you have any medication questions and your symptoms worsen Follow-up/Referrals: Miles Eli DO [Physician] - ([facility] Cardiology office will call you with a follow up appointment.) Morgan Garnica DO [Outside Practitioners] - (Date & Time 07/05/2022 11:20 AM Provider Morgan Garnica DO [facility] ) Diet: Regular Addtl Attending Provider Instructions: Follow up with your new primary care provider 07/05/2022 @ 11:20 AM Morgan Garnica DO [facility] Follow up with cardiology ( office will call you for the appointment) You will need to arrange for Zio patch monitor to monitor for any arrhythmia Seek medical attention if your symptoms reoccur or worsening Pending Studies at Discharge: Yes Stand-Alone Forms: My [facility], Smoking Cessation Medications and DC Order Prescriptions: No Action No Known Home Medications Discharge Orders: Discharge Order (Routine); Ordered 07/02/22 Ordered By: Farhad Alejandre Admission Data Admit Date/Time: 07/01/22 22:06 Attending Provider: Farhad Alejandre Admit Provider: John Ybarra Primary Care Provider: SELF,REFERRED Other Providers: John Ybarra ; Miles Eli ; Farrukh Franco ; Jackson Latham ; Momo Ortiz ; Juan Diego Carrizales ; Aristeo Godwin ; Herlinda Bar ; Macrina Han ; Kaitlin Hdez ; Joe El
== END 2022-07-02 15:02 | disposition home or self-care (01) ==
LOC: EDINP 14:45 → ED 14:45 → EDINP 07-02 00:51